=== PATIENT | female | born 1950 | race Caucasian/White ===

== ENCOUNTER → 2016-05-09 | Outpatient (CLI) | payer MEDICARE, OTHER | LOC: EXRD 14:09 | DX: M54.9 Dorsalgia, unspecified (principal); M51.36 Other intervertebral disc degeneration, lumbar region; R31.9 Hematuria, unspecified | CPT/HCPCS: 74000 ==

== ENCOUNTER → 2016-11-09 | Outpatient (CLI) | payer MEDICARE | LOC: EMI 14:52 | DX: M51.16 Intervertebral disc disorders with radiculopathy, lumbar region (principal); R26.2 Difficulty in walking, not elsewhere classified; M25.351 Other instability, right hip | CPT/HCPCS: 72148 ==

== ENCOUNTER → 2020-10-04 | Outpatient (CLI) | payer OTHER ==
[~2020-10-04] MED LIST: BENTYL 20MG TAB20 MG PO; ZOFRAN ODT 4 MG4 MG PO
== END ==
LOC: RAD 16:40
DX: R07.9 Chest pain, unspecified (principal); R05 Cough; R91.8 Other nonspecific abnormal finding of lung field
CPT/HCPCS: 71046

== ENCOUNTER → 2020-10-28 | Outpatient (CLI) | payer OTHER | LOC: KOH-I 10:26 | DX: R93.89 Abnormal findings on diagnostic imaging of other specified body structures (principal); R07.9 Chest pain, unspecified; R05 Cough; R06.02 Shortness of breath; R91.8 Other nonspecific abnormal finding of lung field | CPT/HCPCS: 71250 ==

== ENCOUNTER → 2021-01-13 | Outpatient (CLI) | payer OTHER ==
[2021-01-14 14:14] LABS: RHEUMATOID ARTHRITIS FACTOR <10.0 IU/mL (<14.0)
== END ==
LOC: LAB 09:57
PROVIDERS: Nurse Practitioner Family
DX: M79.641 Pain in right hand (principal); M79.642 Pain in left hand; M79.671 Pain in right foot; M79.672 Pain in left foot; D89.9 Disorder involving the immune mechanism, unspecified; M25.50 Pain in unspecified joint; R76.8 Other specified abnormal immunological findings in serum; R93.7 Abnormal findings on diagnostic imaging of other parts of musculoskeletal system; M19.042 Primary osteoarthritis, left hand; M19.041 Primary osteoarthritis, right hand
CPT/HCPCS: 36415; 73130; 73630; 82550; 83520; 85652; 86140; 86200; 86431

== ENCOUNTER → 2021-05-16 | Outpatient (CLI) | payer OTHER | LOC: EXRD 15:23 | DX: M79.602 Pain in left arm (principal); M25.512 Pain in left shoulder; W19.XXXA Unspecified fall, initial encounter | CPT/HCPCS: 73030; 73060 ==

== ENCOUNTER → 2021-05-26 | Outpatient (CLI) | payer OTHER | LOC: EMI 13:00 | DX: M75.121 Complete rotator cuff tear or rupture of right shoulder, not specified as traumatic (principal); M77.8 Other enthesopathies, not elsewhere classified | CPT/HCPCS: 73221 ==